=== PATIENT | female | born 1935 | race Caucasian/White ===

== ENCOUNTER → 2018-11-13 | Day surgery (SDC) | payer MEDICARE, OTHER ==
[~2018-11-13] MED LIST: AMLODIPINE BESYL5 MG PO; BREO ELLIPTA INH; CIPRO250 MG PO; CYMBALTA30 MG PO; FENTANYL CITRATE/PF 100MCG/2 ML INJ ONE; FIBER GUMMY PO; GABAPENTIN300 MG PO; HYZAAR 100-251 EACH PO; LYRICA50 MG PO; MIDAZOLAM HCL 2 MG/2 ML VIAL ONE; MOBIC7.5 MG PO; OR PHACO EYE KIT ONE; PREDNISONE1 MG PO; PREOP PHACO EYE KIT ONE; SYNTHROID125 MCG PO; diuretic PO
--- OUTSIDE RECORDS SUMMARY | 2018-11-13 11:56 | XMS REPORT | Continuity of Care Document ---
Author Author [facility] Interface Address Unknown Phone Unavailable Problems Problem Status Onset Date Classification Date Reported Comments Source Acute urinary tract infection 09/07/2017 Diagnosis 09/07/2017 [facility] Medications Medication Details Route Status Patient Instructions Ordering Provider Order Date Source gabapentin 300 MG Oral Capsule gabapentin 300 mg capsule Active 09/07/2017 [facility] Ciprofloxacin 500 MG Oral Tablet ciprofloxacin 500 mg tablet Take 1 tablet every 12 hours by oral route as directed for 10 days. Active [facility] Lorazepam 0.5 MG Oral Tablet lorazepam 0.5 mg tablet Active [facility] Hydrochlorothiazide 25 MG / Losartan Potassium 100 MG Oral Tablet losartan 100 mg-hydrochlorothiazide 25 mg tablet Active [facility] Prednisone 5 MG Oral Tablet prednisone 5 mg tablet TK 3 TS PO D Active [facility] 200 ACTUAT Albuterol 0.09 MG/ACTUAT Metered Dose Inhaler [ProAir] ProAir HFA 90 mcg/actuation aerosol inhaler INL 2 PFS PO QID PRN Active [facility] Budesonide 0.16 MG/ACTUAT / formoterol fumarate 0.0045 MG/ACTUAT Metered Dose Inhaler Symbicort 160 mcg-4.5 mcg/actuation HFA aerosol inhaler INHALE 2 PUFFS PO BID Active [facility] Levothyroxine Sodium 0.125 MG Oral Tablet [Synthroid] Synthroid 125 mcg tablet Active [facility] Allergies, Adverse Reactions, Alerts Substance Category Reaction Severity Reaction type Status Date Reported Comments Source Codeine Allergy to substance 09/07/2017 [facility] Penicillins Allergy to substance 09/07/2017 [facility] Immunizations Immunization Date Given Site Status Last Updated Comments Source influenza, unspecified formulation 06/30/2017 completed [facility] Pneumococcal Conjugate, unspecified formulation 10/30/2015 completed [facility] Results Order Name Results Value Reference Range Date Interpretation Comments Source Urinalysis macro (dipstick) panel - Urine COLOR : Yellow 09/07/2017 [facility] Urinalysis macro (dipstick) panel - Urine CLARITY : Cloudy 09/07/2017 [facility] Urinalysis macro (dipstick) panel - Urine LEUKOCYTES : Moderate 09/07/2017 [facility] Urinalysis macro (dipstick) panel - Urine NITRITES : Positive 09/07/2017 [facility] Urinalysis macro (dipstick) panel - Urine UROBILINOGEN : Normal 09/07/2017 [facility] Urinalysis macro (dipstick) panel - Urine PROTEIN : Trace 09/07/2017 [facility] Urinalysis macro (dipstick) panel - Urine pH : 7.5 09/07/2017 [facility] Urinalysis macro (dipstick) panel - Urine BLOOD : Moderate 09/07/2017 [facility] Urinalysis macro (dipstick) panel - Urine SPECIFIC GRAVITY : 1.020 09/07/2017 [facility] Urinalysis macro (dipstick) panel - Urine KETONES : Negative 09/07/2017 [facility] Urinalysis macro (dipstick) panel - Urine BILIRUBIN : Negative 09/07/2017 [facility] Urinalysis macro (dipstick) panel - Urine GLUCOSE Negative 09/07/2017 [facility] Vital Signs Vital Sign Value Date Comments Source Diastolic (mm Hg) 90 09/07/2017 [facility] Height 64 09/07/2017 [facility] Systolic (mm Hg) 120 09/07/2017 [facility] Weight 220 09/07/2017 [facility] Encounters Location Location Details Encounter Type Encounter Number Reason For Visit Attending Provider ADM Date DC Date Status Source [place] - [facility] - [id number] Greene, [employer]PERVISOR [employer]: [address] [place] [address], Ph. [id number] Erika Greene 09/07/2017 [facility] Procedures Procedure Code Date Perfomer Comments Source Tonsillectomy [facility] Appendectomy [facility] Hysterectomy [facility]
--- OUTSIDE RECORDS SUMMARY | 2018-11-13 11:56 | XMS REPORT | Clinical Summary ---
Author Author 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) 07/10/2018 Hospital Radiology Encounter Saqib Roblero MD 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) 07/10/2018 Hospital Radiology Encounter Saqib Roblero MD 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 Last Filed Vital Signs Not on file Plan of Treatment Not on file Procedures Comments Procedure Name Priority Date/Time Associated Diagnosis XR HAND RIGHT 3 VIEW Routine 07/10/2018 Rheumatoid arthritis with 1:52 PM CDT rheumatoid factor of multiple sites without organ or systems involvement (HCC) XR HAND LEFT 3 VIEW Routine 07/10/2018 Rheumatoid arthritis with 1:52 PM CDT rheumatoid factor of multiple sites without organ or systems involvement (HCC) XR KNEE LEFT 3 VIEWS Routine 07/10/2018 Rheumatoid arthritis with 1:52 PM CDT rheumatoid factor of multiple sites without organ or systems involvement (HCC) XR KNEE RIGHT 3 VIEWS Routine 07/10/2018 Rheumatoid arthritis with 1:52 PM CDT rheumatoid factor of multiple sites without organ or systems involvement (HCC) after 11/12/2017 Results * XR knee 3 views left (07/10/2018 1:52 PM CDT) Narrative Performed At FINAL REPORT [facility] Left knee, three views Clinical indications: M05.79 COMPARISON: None FINDINGS: There is no radiographic evidence of acute fracture or dislocation. The bones appear demineralized. There is mild lateral compartment joint space narrowing and osteophyte formation. Impression: Degenerative changes of the right knee most pronounced in the lateral compartment Signed: Abdulaziz Felder MD Report Verified Date/Time:07/10/2018 16:46:40 Reading Location: [facility] Diagnostic Imaging [place] Room - [facility] 1.526.12 Procedure Note Interface, External Ris In - 07/10/2018 4:48 PM CDT FINAL REPORT Left knee, three views Clinical indications: M05.79 COMPARISON: None FINDINGS: There is no radiographic evidence of acute fracture or dislocation. The bones appear demineralized. There is mild lateral compartment joint space narrowing and osteophyte formation. Impression: Degenerative changes of the right knee most pronounced in the lateral compartment Signed: Abdulaziz Felder MD Report Verified Date/Time: 07/10/2018 16:46:40 Reading Location: [facility] Diagnostic Imaging [place] Room - [facility] 1.310.12 Performing Organization Address City/State/Zipcode Phone Number RIS * XR knee 3 views right (07/10/2018 1:52 PM CDT) Narrative Performed At FINAL REPORT [facility] Right knee, three views Clinical indications: M05.79 COMPARISON: None FINDINGS: There is no radiographic evidence of acute fracture or dislocation. The bones appear demineralized. There is moderate lateral compartment joint space narrowing and osteophyte formation. The patellofemoral compartment also demonstrates joint space narrowing and osteophyte formation. Impression: Degenerative changes of the right knee most pronounced in the lateral compartment Signed: Abdulaziz Felder MD Report Verified Date/Time:07/10/2018 16:45:25 Reading Location: [facility] Imaging [place] Room [place] [address] 1.310.12 Procedure Note Interface, External Ris In - 07/10/2018 4:47 PM CDT FINAL REPORT Right knee, three views Clinical indications: M05.79 COMPARISON: None FINDINGS: There is no radiographic evidence of acute fracture or dislocation. The bones appear demineralized. There is moderate lateral compartment joint space narrowing and osteophyte formation. The patellofemoral compartment also demonstrates joint space narrowing and osteophyte formation. Impression: Degenerative changes of the right knee most pronounced in the lateral compartment Signed: Abdulaziz Felder MD Report Verified Date/Time: 07/10/2018 16:45:25 Reading Location: [facility] Diagnostic Imaging [facility] - [facility] 1.310.12 Performing Organization Address City/State/Zipcode Phone Number GE RIS * XR hand 3 views right (07/10/2018 1:52 PM CDT) Narrative Performed At FINAL REPORT GE RIS Right hand, three views CLINICAL INDICATION: M05.79 Comparison: None FINDINGS: Three views of the right hand were obtained. There is diffuse osteopenia. There is no evidence of acute fracture. No osseous erosions are identified. There are degenerative changes at the 1st carpometacarpal joint. IMPRESSION: Degenerative changes without evidence of osseous erosions or subluxations. Signed: Abdulaziz Felder MD Report Verified Date/Time:07/10/2018 16:40:38 Reading Location: [facility] Diagnostic Imaging [place] Room - [facility] 1.310.12 Procedure Note Interface, External Ris In - 07/10/2018 4:42 PM CDT FINAL REPORT Right hand, three views CLINICAL INDICATION: M05.79 Comparison: None FINDINGS: Three views of the right hand were obtained. There is diffuse osteopenia. There is no evidence of acute fracture. No osseous erosions are identified. There are degenerative changes at the 1st carpometacarpal joint. IMPRESSION: Degenerative changes without evidence of osseous erosions or subluxations. Signed: Abdulaziz Felder MD Report Verified Date/Time: 07/10/2018 16:40:38 Reading Location: [facility] Diagnostic Imaging Reading Room - [facility] F1 1.210.12 Performing Organization Address [facility] Phone Number GE RIS * XR hand 3 views left (07/10/2018 1:52 PM CDT) Narrative Performed At FINAL REPORT GE RIS Left hand, three views CLINICAL INDICATION: M05.79 Comparison: None FINDINGS: Three views of the right hand were obtained. There is diffuse osteopenia. There is no evidence of acute fracture. No osseous erosions are identified. There are degenerative changes at the 1st carpometacarpal joint and distal 2nd interphalangeal joint IMPRESSION: Degenerative changes without evidence of osseous erosions or subluxations. Signed: Abdulaziz Felder MD Report Verified Date/Time:07/10/2018 16:41:35 Reading Location: [facility] Diagnostic Imaging [place] Room - [facility] F1 1741.12 Procedure Note Interface, External Ris In - 07/10/2018 4:43 PM CDT FINAL REPORT Left hand, three views CLINICAL INDICATION: M05.79 Comparison: None FINDINGS: Three views of the right hand were obtained. There is diffuse osteopenia. There is no evidence of acute fracture. No osseous erosions are identified. There are degenerative changes at the 1st carpometacarpal joint and distal 2nd interphalangeal joint IMPRESSION: Degenerative changes without evidence of osseous erosions or subluxations. Signed: Abdulaziz Felder MD Report Verified Date/Time: 07/10/2018 16:41:35 Reading Location: [facility] Diagnostic Imaging [place] Room - [facility] F1 1.758.12 Performing Organization Address [facility] Phone Number [facility] RIS after 11/12/2017 Insurance Payer Benefit Subscriber ID Type Phone Address Plan / Group MEDICARE MEDICARE A xxxxxxxxxxx Medicare B AETNA - MGD CARE AETNA xxxxxxxxxx Medigap EXXON [facility] SUPP ONLY
--- OUTSIDE RECORDS SUMMARY | 2018-11-13 11:56 | XMS REPORT ---
Author [facility] Address Unknown Phone Unavailable Care Team Providers Care Grades 9 12 Tutor Name Role Phone Unavailable Unavailable Problems This patient has no known problems. Allergies, Adverse Reactions, Alerts This patient has no known allergies or adverse reactions. Medications This patient has no known medications. Results Test Description Test Time Test Comments Text Results Atomic Results Result Comments RAD, KNEE, 3 VIEWS, LEFT 2018-07-10 16:46:00 Reason for Exam:->Rheumatoid arthritis with rheumatoid factor of multiple sites without organ or systems involvement FINAL REPORT Left knee, three views Clinical indications: M05.79 COMPARISON: None FINDINGS:There is no radiographic evidence of acute fracture or dislocation. The bones appear demineralized. There is mild lateral compartment joint space narrowing and osteophyte formation. Impression:Degenerative changes of the right knee most pronounced in the lateral compartment Signed: Abdulaziz Felder Verified Date/Time: 07/10/2018 16:46:40 Reading Location: [facility] Diagnostic Imaging [place] [address] 1.310.12 , KNEE, 3 VIEWS, RIGHT 2018-07-10 16:45:00 Reason for Exam:->Rheumatoid arthritis with rheumatoid factor of multiple sites without organ or systems involvement FINAL REPORT Right knee, three views Clinical indications: M05.79 COMPARISON: None FINDINGS:There is no radiographic evidence of acute fracture or dislocation. The bones appear demineralized. There is moderate lateral compartment joint space narrowing and osteophyte formation. The patellofemoral compartment also demonstrates joint space narrowing and osteophyte formation. Impression:Degenerative changes of the right knee most pronounced in the lateral compartment Signed: Abdulaziz Felder Verified Date/Time: 07/10/2018 16:45:25 Reading Location: [facility] Diagnostic Imaging Reading Room - [facility] F1 1.310.12 , HAND, 3 VIEWS, LEFT 2018-07-10 16:41:00 Reason for Exam:->Rheumatoid arthritis with rheumatoid factor of multiple sites without organ or systems involvement FINAL REPORT Left hand, three views CLINICAL INDICATION: M05.79 Comparison: None FINDINGS:Three views of the right hand were obtained. There is diffuse osteopenia. There is no evidence of acute fracture. No osseous erosions are identified. There are degenerative changes at the 1st carpometacarpal joint and distal 2nd interphalangeal joint IMPRESSION: Degenerative changes without evidence of osseous erosions or subluxations. Signed: Abdulaziz Felder Verified Date/Time: 07/10/2018 16:41:35 Reading Location: [place] [address] 1.310.12 E lectronically signed by: ABDULAZIZ FELDER on 07/10/2018 04:41 PM RAD, HAND, 3 VIEWS, RIGHT 2018-07-10 16:40:00 Reason for Exam:->Rheumatoid arthritis with rheumatoid factor of multiple sites without organ or systems involvement FINAL REPORT Right hand, three views CLINICAL INDICATION: M05.79Comparison: None FINDINGS:Three views of the right hand were obtained. There is diffuse osteopenia. There is no evidence of acute fracture. No osseous erosions are identified. There are degenerative changes at the 1st carpometacarpal joint. IMPRESSION: Degenerative changes without evidence of osseous erosions or subluxations. Signed: Abdulaziz Felder Verified Date/Time: 07/10/2018 16:40:38 Reading Location: [facility] Room [place] [address] 1.310.12
--- OUTSIDE RECORDS SUMMARY | 2018-11-13 11:56 | XMS REPORT | Encounter Summary ---
Author Organization Unknown Address [address] [place] [address] Phone [phone] Reason for Visit Medical Complaint Instructions 1. Acute urinary tract infection urinalysis, dipstick culture, urine ciprofloxacin 500 mg tablet Discussion Note Pt is in NAD; Verbalizes understanding of all instructions with no questions at this time. Patient educational handouts: No information available. Plan of Care Patient Instructions Recommend proper hydration and frequent urination. Avoid douching, Recommend urinating after sexual intercourse. Recommend wipe front to back after urinating. Avoid using tubs. Take medications as prescribed. Return to clinic or follow up with your PCP within 2-3 days if symptoms worsen as discussed. Reminders Provider Appointments None recorded. Lab Urinalysis, Dipstick 09/07/2017 [facility] Culture, Urine 09/07/2017 [facility] Referral None recorded. Procedures None recorded. Surgeries None recorded. Imaging None recorded. Medications Name Start Date ciprofloxacin 500 mg tablet Take 1 tablet every 12 hours by oral route as directed for 10 days. gabapentin 300 mg capsule 09/07/2017 lorazepam 0.5 mg tablet losartan 100 mg-hydrochlorothiazide 25 mg tablet prednisone 5 mg tablet TK 3 TS PO D ProAir HFA 90 mcg/actuation aerosol inhaler INL 2 PFS PO QID PRN Symbicort 160 mcg-4.5 mcg/actuation HFA aerosol inhaler INHALE 2 PUFFS PO BID Synthroid 125 mcg tablet Medications Administered None recorded. Vitals Height Weight BMI Blood Pressure 5 ft 4 in 220 lbs 37.8 kg/m2 120/90 mm[Hg] Lab Results Date Name Specimen Result Interpretation Description Value Range Status Address Urinalysis, Dipstick Color : Yellow [facility]: [address] [place] [address] Clarity : Cloudy [facility]: [address] [place] [address] Leukocytes : Moderate [facility]: [address] [place] [address] Nitrites : Positive [facility]: [address] [place] [address] Urobilinogen : Normal [facility]: [address] [place] [address] Protein : Trace [facility]: [facility] Ph : 7.5 [facility]: [facility] Blood : Moderate [facility]: [facility] Specific [place] : 1.020 [facility]: [facility] Ketones : Negative [facility]: [facility] Bilirubin : Negative [facility]: [facility] Glucose Negative [facility]: [facility] Allergies Code Code System Name Reaction Severity Status Onset 2670 RxNorm Codeine Active Penicillins Active Problems None recorded. Procedures Date Name Performed by Tonsillectomy Information not available Appendectomy Information not available Hysterectomy Information not available Vaccine List Vaccine Type influenza, unspecified formulation 06/30/2017 Pneumococcal Conjugate, unspecified formulation 10/30/2015 Social History Smoking Status Never Smoker Past Encounters 09/07/2017 Acute Urinary Tract Infection Erika Greene, OPERATIONS AND MAINTENANCE TECHNICIAN-C: [address] [place] [address], Ph. History of Present Illness [id number] Reported By: Patient HPI: Location: urethra. Quality: pain, pressure. Severity: worsening, moderate. Duration: constant. Onset/Timing: worse, gradual. Context: not sexually active, no known exposure to STD, no prior history of STDs, heterosexual, vaginal intercourse, history of urine cultures/antibiotic treatment, wipes anterior to posterior, voids after intercourse. Modifying factors nothing makes it worse. Associated Symptoms: no fever/chills, no flank pain, no jaundice, no blood in the urine, no vaginal discharge, no blisters on genitals, no rash on genitals, no muscle aches, no headache, pain during urination, urgency, hesitancy, urinary frequency, feeling of incomplete emptying of bladder Review of Systems:ROS as noted in the HPI Review of Systems Basic Reported By: Patient Physical Exam Adult Basic, Adult Female Complete, Adult Male Complete Reported By: Patient Constitutional: General Appearance: healthy-appearing, well-nourished, well-developed. Level of Distress: NAD. Ambulation: ambulating normally Psychiatric: Mental Status: active and alert. Orientation: to time, to place, to person Eyes: Lids and Conjunctivae: non-injected, no pallor; no periorbital edema Neck: Neck: supple. Lymph Nodes: no cervical LAD Lungs: Respiratory effort: no dyspnea, no tachypnea, no use of accessory muscles, no intercostal retractions. Auscultation: breath sounds normal, good air movement Cardiovascular: Heart Auscultation: RRR, no murmurs Musculoskeletal:: Extremities: no edema Neurologic: Gait and Station: normal gait Abdomen: Bowel Sounds: normal. Inspection and Palpation: soft, non-distended, no tenderness, no guarding, no rebound tenderness, no masses, no CVA tenderness. Hernia: none palpable
[2018-11-13 15:45] VITALS: BP 138/71
== END | disposition home or self-care (01) ==
LOC: OR 11:54
PROVIDERS: ATTEND Ophthalmology
DX: H25.12 Age-related nuclear cataract, left eye (principal); I10 Essential (primary) hypertension; E03.9 Hypothyroidism, unspecified; J43.9 Emphysema, unspecified; M35.3 Polymyalgia rheumatica; Z79.52 Long term (current) use of systemic steroids; Z88.5 Allergy status to narcotic agent; Z88.0 Allergy status to penicillin
CPT/HCPCS: J2250; V2632